=== PATIENT | female | born 1960 | race Caucasian/White ===

== ENCOUNTER 2016-08-25 10:06 | Inpatient (IN) ==
[2016-08-25] MEDS ORDERED: ALBUTEROL 2.5 MG/3 ML NEB RESP TX PRN (13:23)
[2016-08-25] MEDS ORDERED: MORPHINE 2 MG/1 ML SYRINGE IV PRN (13:27)
[2016-08-25] MEDS ORDERED: DOCUSATE SODIUM 100 MG CAPSULE PO PRN (13:27)
[2016-08-25] MEDS ORDERED: ONDANSETRON 4 MG/2 ML VIAL IV PRN (13:27)
[2016-08-25] MEDS ORDERED: ACETAMINOPHEN 325 MG TABLET PO PRN ×2 (13:27)
[2016-08-25] MEDS ORDERED: PROMETHAZINE 25 MG TABLET PO PRN (13:27)
[2016-08-25] MEDS ORDERED: guaiFENesin/DM ER 600-30 MG TABLET PO PRN (13:27)
[2016-08-25] MEDS ORDERED: cefTRIAXone 1,000 MG in SODIUM CHLORIDE 0.9% 100 ML IV SCH (13:30)
--- NOTE | 2016-08-25 13:31 | Hospitalist History & Physical ---
<Svetlana Karimi - Last Filed: 08/25/16 13:23> Assessment and Plan - Time spent with patient Time spent with patient: Greater than 30 minutes (1) COPD exacerbation Status: Acute Assessment and plan: Ms. Gabriel is a 56-year-old white female with history of prior substance abuse , former smoker, and COPD admitted by hospitalist service as a transfer from [facility] emergency room with COPD exacerbation, pneumonia, and a possible lung mass. 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 Petty and he has been consulted. Because of the question of a lung mass we will go ahead and order a CT of the chest with contrast to rule this out. Patient has been started on breathing treatments, supplemental oxygen, antibiotics, and steroids. Patient is also complaining of some headaches and hot flashes with hypertension. Right now her blood pressure is stable but we will continue to monitor this. Her headaches and hot flashes may be due to patient starting to go through menopause. We will continue to monitor this as well. Patient will be seen and examined by and further recommendations to follow. Current Visit: Yes (2) Shortness of breath Status: Acute Current Visit: Yes (3) History of substance abuse Status: Acute Current Visit: Yes (4) History of smoking Status: Acute Current Visit: Yes (5) Mass of lung Status: Acute Current Visit: Yes (6) Headache Status: Acute Current Visit: Yes (7) Hypertension Status: Acute Current Visit: Yes (8) Pneumonia Status: Acute Current Visit: Yes History of Present Illness Chief complaint: Shortness of breath History of present illness: Ms. Gabriel is a 56 year old female with history of previous substance abuse, history of smoking, COPD transferred by Dr. Hernandez from [facility] emergency room with COPD exacerbation, pneumonia, and a questionable lung mass. Patient states she was in her normal state of health until about a week ago when she started coughing and having episodes of shortness of breath. She states she then started running fevers up to 102. She tried to get in to see her coating supervisor Dr. Petty but she could not get an appointment so she went to the [facility] clinic where they gave her steroids and some breathing treatments. She felt a little better for a little while and then she got to where she could not catch her breath at all so she went to the ER at [place] this morning. Her records from [place] show an elevated white count of 17, x-ray report is read as bilateral pneumonia with a questionable lung mass. The remainder of her labs are relatively normal. Patient states when she was in [place] 10 years ago she was told she had something growing in her lung. She is requiring Venturi mask on 12 L to maintain 97% O2 sats. She is also complaining that her blood pressures have been up and she has been having headaches and hot flashes. Her blood pressure on admission is 118/83 she is afebrile. Upon exam, patient states she is feeling a lot better than she did this morning. She does have a mild expiratory wheeze bilaterally, conversational dyspnea, and decreased air movement of the right lung greater than the left. Patient denies chest pain, abdominal pain, constipation or diarrhea, or lower extremity edema. 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) Respiratory: History of: COPD Musculoskeletal: History of: Musculoskeletal Problems (carpel tunnel surgery) No history of: Amputation - Surgical History Thoracic Surgeries: Patient denies;: Lobectomy Abdominal Surgeries: Patient denies: Abdominal Surgery - Family History Family History: Reports;: Family Cancer Denies;: Family Anesthesia Reaction, Family Diabetes, Family Heart Disease, Family Hematology, Family Hypertension, Family Psychiatric Problems, Family Stroke, Additional Family History - Social History Smoking Status: Former smoker Have you smoked in the last 12 months: No Type of Drug Use: None Marital Status: Single Lives With:: Parent Functional capacity: independent ambulation Review of systems: A complete 10 system review of systems was obtained and pertinent positives and negatives per HPI Exam - Constitutional Vitals: Period Temp Pulse Resp BP Sys/Haider Pulse Ox Last 24 Hr 98.2 F 64 20 118/83 97 Exam: Constitutional System: Mild distress. No tremulousness. Head: Normocephalic, atraumatic. Ears, Nose and Throat System: No evidence of Otitis or Mastoiditis. No epistaxis or discharge Eyes System: Pupils equal, round, and reactive. Extraocular muscles intact. Neck: Supple, without adenopathy, No jugular venous distention. No thyromegaly, neck mass, or prior surgery apparent. Respiratory System: Chest expiratory wheeze and decreased air movement right greater than left to auscultation. Cardiovascular System: Heart with regular rate and rhythm. 2/6 murmur. GI System: Abdomen soft, nontender. Normo active bowel sounds present. Musculoskeletal System: limbs with no pedal edema. Full distal pulses. Neurological System: No discernable sensory deficit. No aphasia Psychiatric System: Conversation is rational Results - Labs Lab Results: I have reviewed the past 24 hour labs - EKG EKG results: sinus rhythm - Diagnostic Findings Procedure: Chest x-ray: report reviewed by me (Bilateral pneumonia and questionable lung mass) <Gaby Tay - Last Filed: 08/25/16 14:11> History of Present Illness History of present illness: Ms. Gabriel is a 56 year old female who was transferred for evaluation of a lung mass. Plan CT chest IR consult for a biopsy Pulm consult IV steroids, antibiotics, nebs BC, SC UA Nicotine patch Exam - Constitutional Vitals: Period Temp Pulse Resp BP Sys/Haider Pulse Ox Last 24 Hr 98.2 F 64 20 118/83 97
[2016-08-25] MEDS ORDERED: NICOTINE 21 MG/24 HR PATCH TRANSDERM PRN (14:10)
[2016-08-25] MEDS: ENOXAPARIN 40 MG/0.4 ML SYRINGE SUBCUT SCH (14:26)
[2016-08-25] MEDS: BUDESONIDE/FORMOTEROL 160-4.5 INHALER 6 GM INH SCH ×2 (14:26→20:35)
[2016-08-25] MEDS: PANTOPRAZOLE 40 MG TABLET PO SCH (14:26)
[2016-08-25] MEDS: methylPREDNISolone SOD SUC 40 MG/1 ML VIAL IV SCH (14:26)
[2016-08-25] MEDS: SODIUM CHLORIDE 0.9% 1,000 ML IV SCH (14:27)
--- NOTE | 2016-08-25 14:29 | CT Report ---
Exam: CT chest w con Date: 08/25/2016 1:27 PM Comparison: None Indication: Possible lung mass Technique:[Sequential axial scans of the chest were obtained following the injection of 80 cc of Omnipaque 350. Coronal and sagittal 2-D reconstructions were obtained. Total DLP: 131.30] Findings: The heart is normal in size with no pericardial effusion. No evidence of aortic dissection or pulmonary emboli. No chest lymphadenopathy. Degenerative changes are noted. Centrilobular emphysema with honeycombing and diffuse groundglass opacities. Multifocal noncalcified pulmonary opacities are noted. Findings are more pronounced posteriorly in the lower lobes. Associated pleural thickening posteriorly in the right hemithorax with no pleural effusions.Multiple smaller adjacent noncalcified pulmonary opacities in the right upper lobe, left upper lobe/lingula, and left lower lobe which project more centrally in the lungs. Impression: Centrilobular emphysema with honeycombing and probable chronic interstitial fibrosis. Multifocal noncalcified pulmonary opacities which may be related to superimposed pneumonitis. However masses cannot be excluded and short-term follow-up CT chest and/or PET/CT may be helpful for further evaluation. This CT exam was performed using one or more the following dose reduction techniques: Automated exposure control, adjustment of the MA and/or KV according to patient size, or use of iterative reconstruction technique. PROCEDURE INTERPRETED AT [facility] DEPARTMENT OF RADIOLOGY Final Report Signed by: Dr. Marie Yang
[2016-08-25] MEDS: IPRATROPIUM 500 MCG/2.5 ML NEB RESP TX SCH ×2 (14:56→23:56)
[2016-08-25] MEDS: DOXYCYCLINE HYCLATE INJ 100 MG in SODIUM CHLORIDE 0.9% 100 ML IV SCH (16:23)
[2016-08-25] MEDS: ALBUTEROL/IPRATROPIUM 3 ML NEB RESP TX SCH (19:18)
[2016-08-25] MEDS: TEMAZEPAM 15 MG CAPSULE PO SCH (20:35)
[2016-08-26] MEDS: methylPREDNISolone SOD SUC 40 MG/1 ML VIAL IV SCH ×4 (02:16→20:52)
[2016-08-26] MEDS: SODIUM CHLORIDE 0.9% 1,000 ML IV SCH ×2 (02:16→18:21)
[2016-08-26] MEDS: DOXYCYCLINE HYCLATE INJ 100 MG in SODIUM CHLORIDE 0.9% 100 ML IV SCH (02:16)
--- NOTE | 2016-08-26 07:18 | XRay Report ---
XR chest 2V Date: 08/26/2016 4:00 AM History: Shortness of breath Comparison: None Technique: PA and lateral chest Findings: The heart is small and compressed by the over expanded lungs. Evidence of bullous emphysema. Multiple irregular parenchymal densities are noted with findings somewhat more pronounced in the right midlung zone with a 32 mm density and in the right costophrenic angle location. Unremarkable mediastinum with degenerative changes. Impression: Bullous emphysema with evidence of chronic interstitial fibrosis. Multifocal irregular parenchymal densities which appear more pronounced in the right mid lung zone and in the right costophrenic angle location. Although some of the findings may be related to pneumonia, masses cannot be excluded especially the 32 mm finding in the right midlung zone. Follow-up is recommended. PROCEDURE INTERPRETED AT [facility] DEPARTMENT OF RADIOLOGY Final Report Signed by: Dr. Marie Yang
[2016-08-26 07:36] LABS: Basophils % 0.2 % (0.0-0.8); Hematocrit 38.4 VOL% (35.7-47.0); Hemoglobin 12.5 GM/DL (12.0-16.0); Immature Granulocytes % 2.4 %; Lymphocytes # 1.6 10*3/uL (1.4-4.0); Lymphocytes % 12.6 % (21.3-54.2); Mean Corpuscular HGB Conc 32.6 GM/DL (32-36); Mean Corpuscular Hemoglobin 31 PG (27-34); Mean Corpuscular Volume 96.5 FL (87-102); Mean Platelet Volume 9.9 FL (9.6-12.0); Neutrophils # 9.4 10*3/uL (1.4-7.4); Neutrophils % 76.8 % (38.7-73.9); Platelet Count 361 T/CUMM (130-400); Red Blood Count 3.98 MC/CUMM (3.8-5.5); Red Cell Distribution Width 13.9 % (9.3-17.3); White Blood Count 12.3 T/CUMM (4-12)
[2016-08-26] MEDS: IPRATROPIUM 500 MCG/2.5 ML NEB RESP TX SCH (07:56)
[2016-08-26] MEDS: ALBUTEROL/IPRATROPIUM 3 ML NEB RESP TX SCH ×6 (07:56→23:10)
[2016-08-26 08:10] LABS: Calcium 8.7 MG/DL (8.5-10.1); Osmolality,Calculated 280.4 MOS/KG (273-304); Potassium 5.1 MMOL/L (3.5-5.1)
--- NOTE | 2016-08-26 08:41 | Pulmonology Consult Note ---
Assessment and Plan (1) COPD exacerbation Status: Acute Assessment and plan: The patient has severe COPD and is having exacerbation due to bilateral pneumonia. We will continue vigorous respiratory therapy. Current Visit: Yes (2) History of smoking Status: Acute Assessment and plan: She says she is not smoking now. Current Visit: Yes (3) Hypertension Status: Acute Assessment and plan: Her blood pressure is stable Current Visit: Yes (4) Pneumonia Status: Acute Assessment and plan: Patient has bilateral patchy areas consistent with pneumonia. She will be covered with antibiotics. She does not need a needle biopsy at this point as she has high risk for a pneumothorax. She does have very severe lung disease. Current Visit: Yes Qualifiers: Laterality: bilateral History of Present Illness Chief complaint: Shortness of breath History of present illness: Ms. Gabriel is a 56 year old white female that has very severe COPD comes in now with increasing shortness of breath. She says for the past week she has had fever to 102 and coughing yellow sputum. She has developed more shortness of breath and now has bilateral pneumonia. She has been admitted for IV medications. She is still very short of breath but is able to cough up some secretions. She is not having any pleurisy. She does have very severe COPD. She has a former smoker. Home Medications Medication Instructions Recorded Confirmed Type Temazepam [Restoril] 15 mg PO BEDTIME 10/15/14 10/15/14 History Tiotropium [place] [Spiriva] 2 puffs PO DAILY 10/15/14 10/15/14 History Allergies Allergy/AdvReac Type Severity Reaction Status Date / Time No Known Allergies Allergy Unverified 10/15/14 11:34 - Constitutional Constitutional: Present: chills, fatigue, fever(s). Absent: weight loss - EENT Eyes: Absent: loss of vision Ears: Absent: decreased hearing Nose, mouth and throat: Absent: dysphagia, headache(s), sinus pressure - Cardiovascular Cardiovascular: Present: dyspnea. Absent: chest pain at rest, edema, palpitations - Respiratory Respiratory: Present: cough, dyspnea, wheezing, change in phlegm color. Absent : hemoptysis, pain on inspiration - Gastrointestinal Gastrointestinal: Absent: abdominal pain, change in bowel habits, dysphagia, nausea, vomiting - Genitourinary Genitourinary: Absent: difficulty urinating, hematuria, urinary frequency - Musculoskeletal Musculoskeletal: Absent: arthralgias, muscle weakness - Neurological Neurological: Absent: abnormal speech, focal weakness, paresthesias - Psychiatric Psychiatric: Present: anxiety Exam (Pulmonay) H&P - Constitutional Vitals: Period Temp Pulse Resp BP Sys/Haider Pulse Ox Last 24 Hr 97.3 F-98.6 F 62-96 16-20 114-126/75-83 95-99 General appearance: mild distress, under weight - Head Head exam: Present: normal inspection, normocephalic - Eye Eye exam: Absent: scleral icterus Pupils: Present: ROCIO - ENT ENT exam: Present: normal exam - Neck Neck exam: Present: normal inspection. Absent: lymphadenopathy, thyromegaly - Respiratory Respiratory exam: Present: accessory muscle use, decreased breath sounds, prolonged expiratory phase, wheezes - Cardiovascular Cardiovascular exam: Present: regular rate and rhythm. Absent: gallop, systolic murmur - GI/Abdominal GI/Abdominal exam: Present: normal bowel sounds, soft. Absent: distended, organomegaly, tenderness - Extremities Exam Extremities exam: Absent: calf tenderness, edema - Neurological Exam Neurological exam: Present: alert, oriented X3, CN II-XII intact. Absent: motor sensory deficit - Psychiatric Psychiatric exam: Present: anxious - Skin Skin exam: Present: warm, dry Medical,Surgical,& Family Hx - Medical History Psychological: History of: Psychiatric/Substance Abuse Tx (ETOH abuse Took LSD in the past) Respiratory: History of: COPD Musculoskeletal: History of: Musculoskeletal Problems (carpel tunnel surgery) No history of: Amputation - Surgical History Thoracic Surgeries: Patient denies;: Lobectomy Abdominal Surgeries: Patient denies: Abdominal Surgery - Family History Family History: Reports;: Family Cancer Denies;: Family Anesthesia Reaction, Family Diabetes, Family Heart Disease, Family Hematology, Family Hypertension, Family Psychiatric Problems, Family Stroke, Additional Family History - Social History Smoking Status: Former smoker Type of Drug Use: None Results - Labs CBC & BMP: 08/26/16 05:55 08/26/16 05:55 - Diagnostic Findings Procedure: Chest x-ray: image reviewed by me, report reviewed by me (Chest x- ray shows severe COPD changes with bilateral patchy infiltrates.), CT - chest: image reviewed by me, report reviewed by me (CT shows significant emphysematous changes. There are patchy bilateral infiltrates consistent with pneumonia.)
--- NOTE | 2016-08-26 09:14 | Event Note ---
56-year-old female with severe COPD, diffuse interstitial lung disease and patchy areas of opacity in both lung sellers. Clinically, appear she has pneumonia, but we have been asked to biopsy lung to exclude neoplasm. At this point, none of the areas of opacification standout as a particularly significant target for biopsy, and pursuing a biopsy at this time would be premature without more appropriate workup. Recommend follow-up CT scan after acute issues have resolved, realizing that radiographic findings may lag clinical improvement by days or weeks. Should any of these opacities persist at that point, consider PET scan. It is my opinion that these areas represent multifocal pneumonia but, given the severity of interstitial lung disease present, could also represent areas of confluent pulmonary fibrosis. No biopsy at this time.
[2016-08-26] MEDS: PANTOPRAZOLE 40 MG TABLET PO SCH (10:16)
[2016-08-26] MEDS: BUDESONIDE/FORMOTEROL 160-4.5 INHALER 6 GM INH SCH ×2 (10:17→21:55)
--- NOTE | 2016-08-26 12:34 | Hospitalist Progress Note ---
Assessment and Plan (1) COPD exacerbation Status: Acute Assessment and plan: Patient will need aggressive pulmonary toiletry. Continue Solu-Medrol 40 mg IV every 6 hours. Duo nebs will also continue every 6 hours and as needed. Follow clinical improvement Current Visit: Yes (2) History of substance abuse Status: Acute Assessment and plan: Patient stated to me that this a long time ago she was IV drugs. She does have bilateral infiltrates that are positive different locations. Sometimes really see these kind of chest x-ray abnormalities with sounds the right-sided endocarditis. Patient is a febrile. Counseling against drug was offered to the patient. Current Visit: Yes (3) Mass of lung Status: Acute Assessment and plan: Pulmonology consult is on the case. This time does seem to be consensus that patient has pneumonia. There is bilateral patchy infiltrates are concerning. Current Visit: Yes (4) Pneumonia Status: Acute Assessment and plan: Patient has bilateral patchy infiltrates in the lungs. As mentioned above am concerned about possibility of endovascular infection. We will also need to broaden antibiotics on. Respiratory status has not improved is my despite aggressive treatment. Obtain 2 sets of blood cultures before changing the antibiotics. Patient will be put on ceftazidime 1 g IV every 8 hours discontinue ceftriaxone and levofloxacin 750 mg IV daily also add vancomycin 1 g IV every 12 hours. Will order 1 vancomycin pharmacokinetics monitoring through the pharmacy. Current Visit: Yes Qualifiers: Laterality: bilateral Hospitalist: Subjective Interval history: Patient has been seen interviewed and examined and chart has been reviewed. Admitted to the hospital yesterday with respiratory distress acute exacerbation of COPD. Patient has a history of drug use and states that is a long time ago she used IV drugs. Concerned that she does have bilateral patchy infiltrates one wonders about a possible mycotic embolization to the lung however if she is not using IV drugs now right-sided endocarditis cannot be postulated. She is still needing quite a bit of oxygen to maintain saturations. She has had no fevers while here. Aggressive respiratory toiletry and bronchodilators alongside steroids have been used. Exam - Constitutional Vitals: Period Temp Pulse Resp BP Sys/Haider Pulse Ox Last 24 Hr 97.3 F-98.6 F 62-96 16-20 114-134/54-79 95-99 General appearance: normal weight - Head Head exam: Present: normal inspection, normocephalic, atraumatic - Eye Eye exam: Present: EOMI, other (No conjunctival petechia) Pupils: Present: ROCIO - ENT ENT exam: Present: normal exam, normal oropharynx - Neck Neck exam: Present: normal inspection, other (Supple neck no JVD no stridor midline trachea no thyromegaly) - Respiratory Respiratory exam: Present: other (Distant lung sounds with end-expiratory wheezing occasional cough with deep inspiration) - GI/Abdominal GI/Abdominal exam: Present: normal bowel sounds, soft, other (No hepatosplenomegaly) - Extremities Exam Extremities exam: Present: full ROM, other (No leg edema or cyanosis) - Back Exam Back exam: Present: normal inspection - Neurological Exam Neurological exam: Present: alert, oriented X3, CN II-XII intact - Psychiatric Psychiatric exam: Present: normal affect, normal mood - Skin Skin exam: Present: normal color, warm, dry Results - Labs CBC & BMP: 08/26/16 05:55 08/26/16 05:55 Lab Results: I have reviewed the past 24 hour labs
[2016-08-26] MEDS: ENOXAPARIN 40 MG/0.4 ML SYRINGE SUBCUT SCH (14:35)
[2016-08-26] MEDS: LEVOFLOXACIN INJ 750 MG in PREMIX 1 EACH IV SCH (14:36)
[2016-08-26] MEDS: VANCOMYCIN INJ 1,000 MG in SODIUM CHLORIDE 0.9% 250 ML IV SCH (18:21)
[2016-08-26] MEDS: TEMAZEPAM 15 MG CAPSULE PO SCH (20:52)
[2016-08-27] MEDS: ALBUTEROL/IPRATROPIUM 3 ML NEB RESP TX SCH ×5 (03:20→19:10)
[2016-08-27] MEDS: VANCOMYCIN INJ 1,000 MG in SODIUM CHLORIDE 0.9% 250 ML IV SCH ×2 (04:25→17:42)
[2016-08-27] MEDS: methylPREDNISolone SOD SUC 40 MG/1 ML VIAL IV SCH ×4 (04:25→20:14)
--- NOTE | 2016-08-27 09:52 | Pulmonology Progress Note ---
Pulmonary - PN: Subj Interval history: This is a 56-year-old white female with severe COPD and superimposed pneumonia. There are some nodular appearing infiltrates that will need to be followed until they clear radiographically. She feels a little better today. Continuing antibiotics bronchodilator steroids. Her oxygen saturation looked reasonable on 40% Ventimask but the patient felt more short of breath. She is not a retainer so we will do okay with 50% from now. Exam (Progress Note) - Constitutional Vitals: Period Temp Pulse Resp BP Sys/Haider Pulse Ox Last 24 Hr 97.8 F-98.7 F 70-107 16-24 124-143/54-84 95-100 Exam: Patient is thin. She is alert. Wearing facemask oxygen. Vital signs normal. O2 sat 98%. Pupils react to light. Neck is supple no bruits. Chest reveals coarse rhonchi bilaterally and some expiratory wheezes. Heart normal rate rhythm no murmurs no rubs no gallops. Abdomen soft nontender no masses. Bowel sounds present. Extremities no clubbing cyanosis edema. Calves nontender. Results - Labs CBC & BMP: 08/26/16 05:55 08/26/16 05:55 Lab Results: I have reviewed the past 24 hour labs - Diagnostic Findings Procedure: Chest x-ray: image reviewed by me (Bilateral patchy infiltrates. Hyperinflation.) Assessment and Plan (1) COPD exacerbation Status: Acute Assessment and plan: She is a little better less bronchospasm. Continuing steroids antibiotics. Bronchodilators. Current Visit: Yes (2) Pneumonia Status: Acute Assessment and plan: Multiple patchy areas bilaterally. Certainly one of these could be a bronchogenic carcinoma rather than pneumonia. This bears following up with x- rays and probably a CT in 3 months or so. Current Visit: Yes Qualifiers: Laterality: bilateral
[2016-08-27] MEDS: SODIUM CHLORIDE 0.9% 1,000 ML IV SCH ×2 (10:13→20:14)
[2016-08-27] MEDS: PANTOPRAZOLE 40 MG TABLET PO SCH (10:14)
[2016-08-27] MEDS: BUDESONIDE/FORMOTEROL 160-4.5 INHALER 6 GM INH SCH ×2 (10:15→21:13)
[2016-08-27] MEDS ORDERED: methylPREDNISolone SOD SUC 125 MG/2 ML VIAL IV ONE (13:46)
[2016-08-27] MEDS ORDERED: ALPRAZolam 0.5 MG TABLET PO ONE (13:49)
--- NOTE | 2016-08-27 13:56 | Hospitalist Progress Note ---
Assessment and Plan (1) COPD exacerbation Status: Acute Assessment and plan: Patient will need aggressive pulmonary toiletry. Continue Solu-Medrol 40 mg IV every 6 hours. Duo nebs will also continue every 6 hours and as needed. Follow clinical improvement. With the current event patient given an extra dose of Solu-Medrol 250 mg IV, and DuoNeb 1 unit dose now and obtain a 12-lead EKG. This and is very anxious she will be given Xanax 0.5 mg p.o. once Current Visit: Yes (2) History of substance abuse Status: Acute Assessment and plan: Patient stated to me that this a long time ago she was IV drugs. She does have bilateral infiltrates that are positive different locations. Sometimes really see these kind of chest x-ray abnormalities with sounds the right-sided endocarditis. Patient is a febrile. Counseling against drug was offered to the patient. Current Visit: Yes (3) Mass of lung Status: Acute Assessment and plan: Pulmonology consult is on the case. This time does seem to be consensus that patient has pneumonia. There is bilateral patchy infiltrates are concerning. Current Visit: Yes (4) Pneumonia Status: Acute Assessment and plan: Patient has bilateral patchy infiltrates in the lungs. As mentioned above am concerned about possibility of endovascular infection. We will also need to broaden antibiotics on. Respiratory status has not improved is my despite aggressive treatment. Obtain 2 sets of blood cultures before changing the antibiotics. Patient will be put on ceftazidime 1 g IV every 8 hours discontinue ceftriaxone and levofloxacin 750 mg IV daily also add vancomycin 1 g IV every 12 hours. Will order 1 vancomycin pharmacokinetics monitoring through the pharmacy. Current Visit: Yes Qualifiers: Laterality: bilateral Hospitalist: Subjective Interval history: Patient seen interviewed and examined and chart has been reviewed. It was seen in area on today was doing very well still did have some wheezing bilaterally with distant lung sounds. In the last moment I got called back to the room that she was in a panic state breathing at about 25 breaths a minute is not moving too much area. Her last respiratory treatment was about 4 hours ago. Patient will get another DuoNeb now and will give her 250 mg of Solu-Medrol. She was given some Xanax 0.5 mg 1. She takes temazepam at bedtime. History of events like this is pressure when she can nod culture breath. What instigated this at this time I do not know but she is doing a whole lot worse than when she was in the morning. She is being observed closely here will do another 12-lead EKG d-dimer. Exam - Constitutional Vitals: Period Temp Pulse Resp BP Sys/Haider Pulse Ox Last 24 Hr 98.1 F-98.7 F 70-107 16-24 124-143/69-84 95-100 General appearance: normal weight - Head Head exam: Present: normocephalic, atraumatic - Eye Eye exam: Present: EOMI Pupils: Present: ROCIO - ENT ENT exam: Present: normal exam - Neck Neck exam: Present: normal inspection - Respiratory Respiratory exam: Present: other (Near 25 breaths a minute cannot move air very well she is using intercostal muscle no cyanosis oximetry is optimal distant lung sounds) - Cardiovascular Cardiovascular exam: Present: tachycardia (Sinus control) - GI/Abdominal GI/Abdominal exam: Present: normal bowel sounds, soft - Extremities Exam Extremities exam: Present: normal inspection, full ROM - Back Exam Back exam: Present: normal inspection - Neurological Exam Neurological exam: Present: alert, oriented X3, CN II-XII intact - Psychiatric Psychiatric exam: Present: other (Very anxious with respiratory difficulty) - Skin Skin exam: Present: normal color, warm, dry Results - Labs CBC & BMP: 08/26/16 05:55 08/26/16 05:55 Lab Results: I have reviewed the past 24 hour labs
--- NOTE | 2016-08-27 13:58 | EKG Report ---
Stationary ECG Study [facility] Test Date: 08/27/2016 1:57:53 PM Pat Name: CHRISTINA WELLINGTON Department: Room: 518 Gender: F Hospital Education Coordinator: : 1960 Requested by: Cole Schaeffer Order Number: [id number] Reading MD: CAITLIN TREVIÑO Intervals [place] Rate: 114 P: 88 VA: 146 QRS: -57 QRSD: 78 T: 74 QT: 280 QTc: 348 Interpretive Statements SINUS TACHYCARDIA MARKED LEFT AXIS DEVIATION POSSIBLE RIGHT VENTRICULAR CONDUCTION DELAY Electronically Signed On 08-27-16 16:36:16 CDT by CAITLIN TREVIÑO [email or web address]
[2016-08-27 14:17] LABS: Basophils % 0.3 % (0.0-0.8); Hematocrit 42.4 VOL% (35.7-47.0); Hemoglobin 13.7 GM/DL (12.0-16.0); Immature Granulocytes % 10.9 %; Immature Granulocytes Absolute 1.33 #; Lymphocytes # 1.1 10*3/uL (1.4-4.0); Lymphocytes % 9.1 % (21.3-54.2); Mean Corpuscular HGB Conc 32.3 GM/DL (32-36); Mean Corpuscular Hemoglobin 31 PG (27-34); Mean Platelet Volume 9.5 FL (9.6-12.0); Monocytes # 1.3 10*3/uL (0.11-0.8); Neutrophils # 8.4 10*3/uL (1.4-7.4); Neutrophils % 68.7 % (38.7-73.9); Platelet Count 454 T/CUMM (130-400); Red Blood Count 4.37 MC/CUMM (3.8-5.5); Red Cell Distribution Width 13.8 % (9.3-17.3); White Blood Count 12.2 T/CUMM (4-12)
[2016-08-27 14:31] LABS: Calcium 9.2 MG/DL (8.5-10.1); Magnesium 1.7 MG/DL (1.8-2.4); Osmolality,Calculated 283.3 MOS/KG (273-304); Potassium 3.9 MMOL/L (3.5-5.1)
[2016-08-27 14:35] LABS: ABG Base Excess 5.7 MMOL/L (-2.5-2.5); ABG HCO3 33.4 MMOL/L (20-26); ABG Oxygen Saturation 95.3 % (95-100); ABG PCO2 62.4 MM HG (35-48); ABG PH 7.346 (7.35-7.45); ABG PO2 84.6 MM HG (80-95); ABG TCO2 35.3 MMOL/L (23-27); Allen Test Positive; Pt O2 Delivery Device Venturi Mask
[2016-08-27] MEDS ORDERED: MAGNESIUM SULF RIDER 2 GM in PREMIX 1 EACH IV PRN (14:47)
[2016-08-27] MEDS ORDERED: MAGNESIUM SULF RIDER 4 GM in PREMIX 1 EACH IV PRN (14:47)
[2016-08-27] MEDS: ENOXAPARIN 40 MG/0.4 ML SYRINGE SUBCUT SCH (14:59)
[2016-08-27] MEDS: LEVOFLOXACIN INJ 750 MG in PREMIX 1 EACH IV SCH (16:04)
[2016-08-27 17:34] LABS: HIV Antigen/Antibody Result Nonreactive (Nonreactive)
[2016-08-27 17:41] LABS: Lymphocytes 18 % (20-55); Segmented Neutrophils 78 % (50-85); Total Cells Counted 100
[2016-08-27] MEDS: TEMAZEPAM 15 MG CAPSULE PO SCH (20:15)
[2016-08-28] MEDS: ALBUTEROL/IPRATROPIUM 3 ML NEB RESP TX SCH ×6 (01:25→19:52)
[2016-08-28] MEDS: methylPREDNISolone SOD SUC 40 MG/1 ML VIAL IV SCH ×4 (02:24→20:52)
[2016-08-28] MEDS: VANCOMYCIN INJ 1,000 MG in SODIUM CHLORIDE 0.9% 250 ML IV SCH ×2 (02:28→18:20)
[2016-08-28 05:39] LABS: Basophils % 0.1 % (0.0-0.8); Hematocrit 35.7 VOL% (35.7-47.0); Hemoglobin 11.7 GM/DL (12.0-16.0); Immature Granulocytes % 6.3 %; Immature Granulocytes Absolute 0.67 #; Lymphocytes # 1.3 10*3/uL (1.4-4.0); Mean Corpuscular HGB Conc 32.8 GM/DL (32-36); Mean Corpuscular Hemoglobin 32 PG (27-34); Mean Corpuscular Volume 96.7 FL (87-102); Mean Platelet Volume 9.3 FL (9.6-12.0); Monocytes # 0.7 10*3/uL (0.11-0.8); Monocytes % 6.7 % (1.7-12.7); Neutrophils % 74.9 % (38.7-73.9); Platelet Count 373 T/CUMM (130-400); Red Blood Count 3.69 MC/CUMM (3.8-5.5); Red Cell Distribution Width 13.7 % (9.3-17.3); White Blood Count 10.7 T/CUMM (4-12)
[2016-08-28 05:59] LABS: Calcium 8.6 MG/DL (8.5-10.1); Magnesium 1.8 MG/DL (1.8-2.4); Osmolality,Calculated 281.4 MOS/KG (273-304); Potassium 4.2 MMOL/L (3.5-5.1)
[2016-08-28 06:24] LABS: Hypochromasia 1+; Lymphocytes 18 % (20-55); Segmented Neutrophils 74 % (50-85); Total Cells Counted 100
--- NOTE | 2016-08-28 06:50 | Pulmonology Progress Note ---
Pulmonary - PN: Subj Interval history: This is a 56-year-old white female with severe COPD and superimposed pneumonia. There are some nodular appearing infiltrates that will need to be followed until they clear radiographically. She feels a little better today. Continuing antibiotics bronchodilator steroids. Her oxygen saturation looked reasonable on 40% Ventimask but the patient felt more short of breath. She is not a retainer so we will do okay with 50% from now. 08/28/2016 patient was moved to the ICU last night. Based on her description of events it sounds like she had a panic attack. She said the room was too hot and people were checking on her closely enough. She feels like she is breathing much better just being in the ICU. She did have an elevated PCO2 of 60. We need to reduce her oxygen try to keep her O2 sat in the 90-94% range. Exam (Progress Note) - Constitutional Vitals: Period Temp Pulse Resp BP Sys/Haider Pulse Ox Last 24 Hr 97.7 F-99.4 F 63-122 15-26 112-156/68-100 92-100 Exam: Patient is thin. She is alert. Wearing nasal oxygen. Vital signs normal. O2 sat 100%. Pupils react to light. Neck is supple no bruits. Chest reveals coarse rhonchi bilaterally and some expiratory wheezes. Heart normal rate rhythm no murmurs no rubs no gallops. Abdomen soft nontender no masses. Bowel sounds present. Extremities no clubbing cyanosis edema. Calves nontender. Results - Labs CBC & BMP: 08/28/16 05:34 08/28/16 05:34 Lab Results: I have reviewed the past 24 hour labs - Diagnostic Findings Procedure: Chest x-ray: image reviewed by me (Hyperinflation. Patchy infiltrates. Looks a little better than previous.) Assessment and Plan (1) COPD exacerbation Status: Acute Assessment and plan: She is a little better less bronchospasm. Continuing steroids antibiotics. Bronchodilators. 08/28/2016 lungs do sound better. Should be able to go to the floor if she does not become too anxious. Current Visit: Yes (2) Pneumonia Status: Acute Assessment and plan: Multiple patchy areas bilaterally. Certainly one of these could be a bronchogenic carcinoma rather than pneumonia. This bears following up with x- rays and probably a CT in 3 months or so. 08/28/2016 appears to be improving with antibiotics Current Visit: Yes Qualifiers: Laterality: bilateral (3) Panic attack Status: Acute Assessment and plan: I do think that she had a panic attack. Will start on Paxil today. Current Visit: Yes
[2016-08-28] MEDS: PARoxetine 20 MG TABLET PO SCH (08:25)
[2016-08-28] MEDS: PANTOPRAZOLE 40 MG TABLET PO SCH (08:26)
[2016-08-28 08:47] LABS: Hepatitis A Ab IgM Quant 0.08 Index; Hepatitis A Ab IgM Result Negative (Negative); Hepatitis B Core IgM Quant 0.18 Index; Hepatitis B Core IgM Result Negative (Negative); Hepatitis B Surface Ag Quant 0.23 Index; Hepatitis B Surface Ag Result Negative (Negative); Hepatitis C Virus Ab Quant 0.11 Index; Hepatitis C Virus Ab Result Negative (Negative)
--- NOTE | 2016-08-28 08:53 | XRay Report ---
XR chest 1V portable Indication: Shortness of breath. Comparison: Chest x-ray 08/26/2016. Technique: Portable AP chest was performed. Findings: Heart size appears within normal limits. Mediastinal contour and hilar structures demonstrate no significant abnormalities. Coarsened reticular interstitial markings noted bilaterally have somewhat improved since comparison study and previously demonstrated patchy airspace opacities in the mid to lower right and left chest have improved. Bones and soft tissues appear stable. Impression: 1. Improvement in patchy airspace disease is demonstrated with residual prominent reticular interstitial markings that may in part be chronic. 08/28/2016 8:49 AM PROCEDURE INTERPRETED AT [facility] DEPARTMENT OF RADIOLOGY Final Report Signed by: Dr. Raúl Rahman
--- NOTE | 2016-08-28 10:30 | Hospitalist Progress Note ---
Assessment and Plan (1) COPD exacerbation Status: Acute Assessment and plan: Steroids, duonebs Current Visit: Yes (2) History of substance abuse Status: Acute Current Visit: Yes (3) Mass of lung Status: Acute Assessment and plan: Will need repeat imaging once infection is resolved Current Visit: Yes (4) Pneumonia Status: Acute Assessment and plan: Bilateral pneumonia Pulmonary assisting On ceftazidime and vancomycin Current Visit: Yes Qualifiers: Laterality: bilateral (5) Anxiety Status: Acute Assessment and plan: Panic attack yesterday relieved with xanex Started paxel, xanex prn Current Visit: Yes Hospitalist: Subjective Interval history: No acute events overnight. Yesterday evening patient was transferred to the ICU due to an episode of difficulty breathing. This episode appears to be related to a panic attack. She received a benzo before transfer and was much more comfortable on arrival. She was started on paxil this morning. Pulmonary assisting with management. Will transfer back to the floor today. Exam - Constitutional Vitals: Period Temp Pulse Resp BP Sys/Haider Pulse Ox Last 24 Hr 97.7 F-99.4 F 63-122 15-32 112-156/68-100 92-100 General appearance: normal weight - Head Head exam: Present: normocephalic, atraumatic - Eye Eye exam: Present: EOMI Pupils: Present: ROCIO - ENT ENT exam: Present: normal exam - Neck Neck exam: Present: normal inspection - Respiratory Respiratory exam: Present: rhonchi, wheezes - Cardiovascular Cardiovascular exam: Present: regular rate and rhythm - GI/Abdominal GI/Abdominal exam: Present: normal bowel sounds, soft. Absent: tenderness, rebound - Extremities Exam Extremities exam: Present: normal inspection - Back Exam Back exam: Present: normal inspection - Neurological Exam Neurological exam: Present: alert, oriented X3 - Psychiatric Psychiatric exam: Present: normal affect, normal mood - Skin Skin exam: Present: warm, intact Results - Labs CBC & BMP: 08/28/16 05:34 08/28/16 05:34
[2016-08-28] MEDS: BUDESONIDE/FORMOTEROL 160-4.5 INHALER 6 GM INH SCH ×2 (11:49→20:55)
[2016-08-28] MEDS: ALPRAZolam 0.5 MG TABLET PO PRN ×2 (11:55→20:52)
[2016-08-28] MEDS: ENOXAPARIN 40 MG/0.4 ML SYRINGE SUBCUT SCH (14:26)
[2016-08-28] MEDS: LEVOFLOXACIN INJ 750 MG in PREMIX 1 EACH IV SCH (15:23)
[2016-08-28] MEDS ORDERED: ALPRAZolam 0.5 MG TABLET PO PRN (16:25)
[2016-08-28] MEDS: TEMAZEPAM 15 MG CAPSULE PO SCH (20:52)
[2016-08-28] MEDS: SODIUM CHLORIDE 0.9% 1,000 ML IV SCH ×2 (22:43→22:46)
[2016-08-29] MEDS: ALBUTEROL/IPRATROPIUM 3 ML NEB RESP TX SCH ×7 (00:51→22:44)
[2016-08-29] MEDS: methylPREDNISolone SOD SUC 40 MG/1 ML VIAL IV SCH ×4 (03:23→20:48)
[2016-08-29] MEDS: VANCOMYCIN INJ 1,000 MG in SODIUM CHLORIDE 0.9% 250 ML IV SCH ×2 (03:25→14:53)
[2016-08-29] MEDS: PARoxetine 20 MG TABLET PO SCH (09:20)
[2016-08-29] MEDS: PANTOPRAZOLE 40 MG TABLET PO SCH (09:20)
[2016-08-29] MEDS: ALPRAZolam 0.5 MG TABLET PO PRN ×2 (09:20→20:48)
[2016-08-29] MEDS: BUDESONIDE/FORMOTEROL 160-4.5 INHALER 6 GM INH SCH ×2 (09:34→20:49)
--- NOTE | 2016-08-29 09:41 | Hospitalist Progress Note ---
<Roverto Wilks - Last Filed: 08/29/16 10:04> Assessment and Plan (1) COPD exacerbation Status: Acute Assessment and plan: Pt. on steroids and duonebs. Continue to monitor. Current Visit: Yes (2) Pneumonia Status: Acute Assessment and plan: Pulmonary following. Continue on IV antibiotics. Current Visit: Yes Qualifiers: Laterality: bilateral (3) History of substance abuse Status: Acute Current Visit: Yes (4) Mass of lung Status: Acute Assessment and plan: Repeat CXR. Pulmonary following. Current Visit: Yes (5) Anxiety Status: Acute Assessment and plan: Pt. on prn xanax. Also started on paxil. Current Visit: Yes Hospitalist: Subjective Interval history: Pt. seen and examined. Pt. states she just got a breathing treatment but it didn 't help. Pt. visibly anxious and agitated. Pt. encouraged to be calm and breath deeply. Pt. requests medication for "nerves". RN at bedside and notes request. Pt. denies any other complaints at this time. VS and labs stable this am. Will continue to monitor. Exam - Constitutional Vitals: Period Temp Pulse Resp BP Sys/Haider Pulse Ox Last 24 Hr 97.3 F-98.6 F 55-95 13-88 134-170/70-109 90-98 General appearance: no acute distress - Head Head exam: Present: normal inspection, normocephalic - Eye Eye exam: Present: EOMI. Absent: periorbital swelling Pupils: Present: ROCIO. Absent: dilated - Respiratory Respiratory exam: Present: wheezes - Cardiovascular Cardiovascular exam: Present: regular rate and rhythm - GI/Abdominal GI/Abdominal exam: Present: normal bowel sounds, soft. Absent: tenderness - Extremities Exam Extremities exam: Present: normal capillary refill, full ROM. Absent: edema - Neurological Exam Neurological exam: Present: alert, oriented X3, normal gait - Psychiatric Psychiatric exam: Present: agitated, anxious - Skin Skin exam: Present: normal color, warm, dry Results - Labs CBC & BMP: 08/28/16 05:34 08/28/16 05:34 Lab Results: I have reviewed the past 24 hour labs <Lyric Broussard - Last Filed: 08/29/16 15:59> Assessment and Plan (1) COPD exacerbation Status: Acute Current Visit: Yes (2) History of substance abuse Status: Acute Current Visit: Yes (3) Mass of lung Status: Acute Current Visit: Yes (4) Pneumonia Status: Acute Current Visit: Yes Qualifiers: Laterality: bilateral (5) Anxiety Status: Acute Current Visit: Yes Hospitalist: Subjective Interval history: Patient seen and examined independently of COMMUNICATION ANALYST Wilks, agree with assessment and plan as documented. Exam - Constitutional Vitals: Period Temp Pulse Resp BP Sys/Haider Pulse Ox Last 24 Hr 97.3 F-99.2 F 55-123 16-88 134-160/70-94 87-98 Results - Labs CBC & BMP: 08/28/16 05:34 08/28/16 05:34
[2016-08-29] MEDS: SODIUM CHLORIDE 0.9% 1,000 ML IV SCH (10:20)
--- NOTE | 2016-08-29 12:18 | Pulmonology Progress Note ---
Pulmonary - PN: Subj Interval history: The patient is a 56-year-old that has very severe COPD. She came in with shortness of breath and had patchy bilateral infiltrates. She has been getting antibiotics and steroids and bronchodilator therapy. Over the weekend she said she had panic attacks and was very short of breath and was actually moved to the ICU. She is now on telemetry and does feel better. She still has a good bit of anxiety. Her cough is better and she is clearing a little bit more secretions. Her x-ray actually looked a good bit better. She does seem to be breathing a little more comfortably. Exam (Progress Note) - Constitutional Vitals: Period Temp Pulse Resp BP Sys/Haider Pulse Ox Last 24 Hr 97.3 F-98.5 F 55-95 16-88 134-170/70-94 90-98 Exam: General appearance: mild distress, under weight, she is still a little anxious but looks comfortable. - Head Head exam: Present: normal inspection, normocephalic - Eye Eye exam: Absent: scleral icterus Pupils: Present: ROCIO - ENT ENT exam: Present: normal exam - Neck Neck exam: Present: normal inspection. Absent: lymphadenopathy, thyromegaly - Respiratory Respiratory exam: Present: She has very diminished breath sounds with prolonged expiration but her wheezing has improved. She has minimal rhonchi. - Cardiovascular Cardiovascular exam: Present: regular rate and rhythm. Absent: gallop, systolic murmur - GI/Abdominal GI/Abdominal exam: Present: normal bowel sounds, soft. Absent: distended, organomegaly, tenderness - Extremities Exam Extremities exam: Absent: calf tenderness, edema - Neurological Exam Neurological exam: Present: alert, oriented X3, CN II-XII intact. Absent: motor sensory deficit - Psychiatric Psychiatric exam: Present: anxious - Skin Skin exam: Present: warm, dry Results - Labs CBC & BMP: 08/28/16 05:34 08/28/16 05:34 - Diagnostic Findings Procedure: Chest x-ray: image reviewed by me, report reviewed by me (Chest x- ray yesterday showed improvement in the bibasilar infiltrates.) Assessment and Plan (1) COPD exacerbation Status: Acute Assessment and plan: The patient has severe COPD and is having exacerbation due to bilateral pneumonia. She is having some anxiety but does seem to be breathing a little better. Current Visit: Yes (2) History of smoking Status: Acute Assessment and plan: She says she is not smoking now. Current Visit: Yes (3) Hypertension Status: Acute Assessment and plan: Her blood pressure is stable Current Visit: Yes (4) Pneumonia Status: Acute Assessment and plan: Patient has bilateral patchy areas consistent with pneumonia. She will be covered with antibiotics. Her x-ray is improving. She may need a therapeutic bronchoscopy however to clear the thick secretions. Current Visit: Yes Qualifiers: Laterality: bilateral
[2016-08-29] MEDS: LEVOFLOXACIN INJ 750 MG in PREMIX 1 EACH IV SCH (13:36)
[2016-08-29] MEDS: ENOXAPARIN 40 MG/0.4 ML SYRINGE SUBCUT SCH (13:37)
[2016-08-29] MEDS: TEMAZEPAM 15 MG CAPSULE PO SCH (20:48)
[2016-08-30] MEDS: VANCOMYCIN INJ 1,000 MG in SODIUM CHLORIDE 0.9% 250 ML IV SCH (02:34)
[2016-08-30] MEDS: methylPREDNISolone SOD SUC 40 MG/1 ML VIAL IV SCH ×4 (02:57→21:19)
[2016-08-30] MEDS: ALBUTEROL/IPRATROPIUM 3 ML NEB RESP TX SCH ×5 (03:00→20:06)
[2016-08-30 06:14] LABS: Basophils % 0.3 % (0.0-0.8); Hematocrit 43.3 VOL% (35.7-47.0); Hemoglobin 14.5 GM/DL (12.0-16.0); Immature Granulocytes Absolute 0.59 #; Lymphocytes # 1.2 10*3/uL (1.4-4.0); Lymphocytes % 9.9 % (21.3-54.2); Mean Corpuscular HGB Conc 33.5 GM/DL (32-36); Mean Corpuscular Hemoglobin 31 PG (27-34); Mean Corpuscular Volume 92.7 FL (87-102); Mean Platelet Volume 9.3 FL (9.6-12.0); Monocytes # 0.8 10*3/uL (0.11-0.8); Monocytes % 6.6 % (1.7-12.7); Neutrophils # 9.2 10*3/uL (1.4-7.4); Neutrophils % 78.2 % (38.7-73.9); Platelet Count 478 T/CUMM (130-400); Red Blood Count 4.67 MC/CUMM (3.8-5.5); Red Cell Distribution Width 13.3 % (9.3-17.3); White Blood Count 11.8 T/CUMM (4-12)
[2016-08-30 06:53] LABS: Calcium 9.2 MG/DL (8.5-10.1); Magnesium 1.9 MG/DL (1.8-2.4); Osmolality,Calculated 275.7 MOS/KG (273-304); Potassium 4.1 MMOL/L (3.5-5.1)
[2016-08-30 07:16] LABS: Hypochromasia 1+; Lymphocytes 11 % (20-55); Segmented Neutrophils 85 % (50-85); Total Cells Counted 100
[2016-08-30 07:17] LABS: Platelet Estimate Increased
[2016-08-30] MEDS: ENOXAPARIN 40 MG/0.4 ML SYRINGE SUBCUT SCH (09:00)
[2016-08-30] MEDS: PANTOPRAZOLE 40 MG TABLET PO SCH (09:00)
[2016-08-30] MEDS: PARoxetine 20 MG TABLET PO SCH (09:00)
[2016-08-30] MEDS: BUDESONIDE/FORMOTEROL 160-4.5 INHALER 6 GM INH SCH ×2 (09:01→21:20)
--- NOTE | 2016-08-30 09:34 | Pulmonology Progress Note ---
Pulmonary - PN: Subj Interval history: The patient is a 56-year-old that has very severe COPD. She came in with shortness of breath and had patchy bilateral infiltrates. She has been getting antibiotics and steroids and bronchodilator therapy. Over the weekend she said she had panic attacks and was very short of breath and was actually moved to the ICU. She is now on telemetry and does feel better. She still has a good bit of anxiety. She says today she is feeling a little better and seems to be breathing a little better. She still is having trouble clearing secretions. She still has some cough and thick sputum. She does look a little more comfortable however. Exam (Progress Note) - Constitutional Vitals: Period Temp Pulse Resp BP Sys/Haider Pulse Ox Last 24 Hr 97.1 F-99.2 F 80-123 18-22 136-158/82-94 87-98 Exam: General appearance: mild distress, under weight, she is more comfortable and less anxious. - Head Head exam: Present: normal inspection, normocephalic - Eye Eye exam: Absent: scleral icterus Pupils: Present: ROCIO - ENT ENT exam: Present: normal exam - Neck Neck exam: Present: normal inspection. Absent: lymphadenopathy, thyromegaly - Respiratory Respiratory exam: Present: She has very diminished breath sounds with prolonged expiration but her wheezing has improved. She has minimal rhonchi. - Cardiovascular Cardiovascular exam: Present: regular rate and rhythm. Absent: gallop, systolic murmur - GI/Abdominal GI/Abdominal exam: Present: normal bowel sounds, soft. Absent: distended, organomegaly, tenderness - Extremities Exam Extremities exam: Absent: calf tenderness, edema - Neurological Exam Neurological exam: Present: alert, oriented X3, CN II-XII intact. Absent: motor sensory deficit - Psychiatric Psychiatric exam: Present: anxious - Skin Skin exam: Present: warm, dry Results - Labs CBC & BMP: 08/30/16 05:56 08/30/16 05:56 Assessment and Plan (1) COPD exacerbation Status: Acute Assessment and plan: The patient has severe COPD and is having exacerbation due to bilateral pneumonia. She is having some anxiety but does seem to be breathing a little better. She is moving air a little better but still has thick secretions. Will try therapeutic bronchoscopy tomorrow and see if this will help her. Current Visit: Yes (2) History of smoking Status: Acute Assessment and plan: She says she is not smoking now. Current Visit: Yes (3) Hypertension Status: Acute Assessment and plan: Her blood pressure is stable Current Visit: Yes (4) Pneumonia Status: Acute Assessment and plan: Patient has bilateral patchy areas consistent with pneumonia. She will be covered with antibiotics. Her x-ray is improving. She still has trouble with secretions and will plan a therapeutic bronchoscopy tomorrow. Current Visit: Yes Qualifiers: Laterality: bilateral
--- NOTE | 2016-08-30 14:28 | Hospitalist Progress Note ---
Assessment and Plan - Time spent with patient Time spent with patient: Greater than 30 minutes (1) COPD exacerbation Status: Acute Assessment and plan: Continue current management. Pulmonary is on board. Current Visit: Yes (2) Pneumonia Status: Acute Assessment and plan: Continue current management. Current Visit: Yes Qualifiers: Laterality: bilateral Hospitalist: Subjective Interval history: No new complaints or overnight events. Exam - Constitutional Vitals: Period Temp Pulse Resp BP Sys/Haider Pulse Ox Last 24 Hr 97.1 F-98.8 F 80-120 18-22 136-182/82-109 92-98 General appearance: no acute distress - Head Head exam: Present: normocephalic, atraumatic - Eye Eye exam: Present: EOMI Pupils: Present: ROCIO - ENT ENT exam: Present: normal exam - Neck Neck exam: Present: normal inspection - Respiratory Respiratory exam: Present: prolonged expiratory phase, wheezes. Absent: rhonchi - Cardiovascular Cardiovascular exam: Present: regular rate and rhythm. Absent: gallop, rubs, systolic murmur - GI/Abdominal GI/Abdominal exam: Present: normal bowel sounds, soft. Absent: distended, firm , guarding, tenderness, rebound - Extremities Exam Extremities exam: Present: normal inspection. Absent: calf tenderness, edema Results - Labs CBC & BMP: 08/30/16 05:56 08/30/16 05:56 Lab Results: I have reviewed the past 24 hour labs
[2016-08-30] MEDS: LEVOFLOXACIN INJ 750 MG in PREMIX 1 EACH IV SCH (14:47)
[2016-08-30] MEDS: ALPRAZolam 0.5 MG TABLET PO PRN ×2 (14:48→21:20)
[2016-08-30 18:56] LABS: Mycoplasma pneumoniae Ab, IgG 1.25 index (<=0.90); Mycoplasma pneumoniae Ab, IgM 0.47 index (<=0.90)
[2016-08-30] MEDS: TEMAZEPAM 15 MG CAPSULE PO SCH (21:20)
[2016-08-31] MEDS: ALBUTEROL/IPRATROPIUM 3 ML NEB RESP TX SCH ×7 (00:46→20:10)
[2016-08-31] MEDS: methylPREDNISolone SOD SUC 40 MG/1 ML VIAL IV SCH ×3 (02:31→18:11)
[2016-08-31 05:58] LABS: Basophils % 0.2 % (0.0-0.8); Hematocrit 43.7 VOL% (35.7-47.0); Hemoglobin 14.6 GM/DL (12.0-16.0); Immature Granulocytes % 2.7 %; Lymphocytes # 1.1 10*3/uL (1.4-4.0); Lymphocytes % 9.6 % (21.3-54.2); Mean Corpuscular HGB Conc 33.4 GM/DL (32-36); Mean Corpuscular Hemoglobin 31 PG (27-34); Mean Corpuscular Volume 92.4 FL (87-102); Mean Platelet Volume 9.2 FL (9.6-12.0); Monocytes # 0.4 10*3/uL (0.11-0.8); Monocytes % 3.9 % (1.7-12.7); Neutrophils # 9.4 10*3/uL (1.4-7.4); Neutrophils % 83.6 % (38.7-73.9); Platelet Count 512 T/CUMM (130-400); Red Blood Count 4.73 MC/CUMM (3.8-5.5); Red Cell Distribution Width 13.3 % (9.3-17.3); White Blood Count 11.3 T/CUMM (4-12)
[2016-08-31] MEDS ORDERED: GLYCOPYRROLATE 0.4 MG/2 ML VIAL IM ONE (07:00)
[2016-08-31] MEDS ORDERED: MEPERIDINE 50 MG/1 ML VIAL IM ONE (07:00)
[2016-08-31] MEDS ORDERED: PROMETHAZINE 25 MG/1 ML VIAL IM ONE (07:00)
[2016-08-31] MEDS ORDERED: MIDAZOLAM 2 MG/2 ML VIAL ONE ×2 (07:02→07:45)
[2016-08-31] MEDS ORDERED: LIDOCAINE 1% 20 ML VIAL MISC INJ ONE (07:30)
[2016-08-31] MEDS ORDERED: LIDOCAINE 2% VISCOUS 100 ML BOTTLE SWISH/SPIT ONE (07:30)
[2016-08-31] MEDS ORDERED: MIDAZOLAM 2 MG/2 ML VIAL IV ONE (07:30)
[2016-08-31] MEDS ORDERED: LIDOCAINE 4% TOP SOLN 50 ML BOTTLE RESP TX ONE (07:30)
--- NOTE | 2016-08-31 07:41 | Pulmonology Progress Note ---
Pulmonary - PN: Subj Interval history: The patient is a 56-year-old that has very severe COPD. She came in with shortness of breath and had patchy bilateral infiltrates. She has been getting antibiotics and steroids and bronchodilator therapy. Over the weekend she said she had panic attacks and was very short of breath and was actually moved to the ICU. She is now on telemetry and does feel better. She still has a good bit of anxiety. The patient is doing a little better but she still gets very short of breath easily. She still coughs and has trouble clearing secretions. She has been tolerating her therapy fairly well. We will proceed with a therapeutic bronchoscopy and check her airways. Exam (Progress Note) - Constitutional Vitals: Period Temp Pulse Resp BP Sys/Haider Pulse Ox Last 24 Hr 97.4 F-98.6 F 77-152 16-20 137-182/84-124 89-95 Exam: General appearance: mild distress, under weight, she is more comfortable and less anxious. She gets tachypneic very easily however. - Head Head exam: Present: normal inspection, normocephalic - Eye Eye exam: Absent: scleral icterus Pupils: Present: ROCIO - ENT ENT exam: Present: normal exam - Neck Neck exam: Present: normal inspection. Absent: lymphadenopathy, thyromegaly - Respiratory Respiratory exam: Present: She has very diminished breath sounds with prolonged expiration but her wheezing has improved. She has minimal rhonchi. - Cardiovascular Cardiovascular exam: Present: regular rate and rhythm. Her heart rate goes up at times. Absent: gallop, systolic murmur - GI/Abdominal GI/Abdominal exam: Present: normal bowel sounds, soft. Absent: distended, organomegaly, tenderness - Extremities Exam Extremities exam: Absent: calf tenderness, edema - Neurological Exam Neurological exam: Present: alert, oriented X3, CN II-XII intact. Absent: motor sensory deficit - Psychiatric Psychiatric exam: Present: anxious - Skin Skin exam: Present: warm, dry Results - Labs CBC & BMP: 08/31/16 05:42 08/30/16 05:56 Assessment and Plan (1) COPD exacerbation Status: Acute Assessment and plan: The patient has severe COPD and is having exacerbation due to bilateral pneumonia. She is having some anxiety but does seem to be breathing a little better. She is moving air a little better but still has thick secretions. She does have very little reversible disease. We will check her airways with the bronchoscope and clear the secretions. Otherwise will have to continue bronchodilators and steroids. Current Visit: Yes (2) History of smoking Status: Acute Assessment and plan: She says she is not smoking now. Current Visit: Yes (3) Hypertension Status: Acute Assessment and plan: Her blood pressure is stable. It does get very high at times. Current Visit: Yes (4) Pneumonia Status: Acute Assessment and plan: Patient has bilateral patchy areas consistent with pneumonia. She will be covered with antibiotics. Her chest x-ray is much better and the infiltrates are clearing. Current Visit: Yes Qualifiers: Laterality: bilateral
--- NOTE | 2016-08-31 07:45 | Operative Note ---
Date of procedure: 08/31/16 Pre-op diagnosis: COPD with pneumonia Post-op diagnosis: other (Bronchitis with mucous plugging) Procedure: The patient has severe COPD and came in with an exacerbation with bilateral infiltrates. She has had trouble clearing secretions. A bronchoscopy will be done to assess airways and clear airways. Timeout was performed to identify the patient. The patient is in the bronchoscopy lab. Preop: Demerol 50 mg, Phenergan 25 mg, Robinul 0.1 mg IM. Anesthesia: Versed 4 mg IVP, topical lidocaine. Procedure: The fiberoptic bronchoscope was passed transnasally through the vocal cords into the lungs. The bronchopulmonary segments were identified and specimens were obtained. Findings: The vocal cords close normally and the trachea is unremarkable. The main bronchi are open but there is some bronchitis present. There is some thick mucus and plugs seen bilaterally that were washed and cleared. Washings were sent for culture. There is some mild bleeding in the right middle lobe that cleared quickly. The right upper lobe, right middle lobe, and right lower lobe are all open. The left upper lobe, lingula, and left lower lobe are open. There are no endobronchial lesions seen. Once the thick secretions were clear the procedure was stopped. She did get short of breath but tolerated the procedure fairly well Impression: Severe COPD with mucous plugging and bronchitis . Plan: We will continue antibiotics, steroids, and bronchodilator therapy. Anesthesia: conscious sedation Surgeon / Physician: Junito Petty Estimated blood loss: none Specimens: other (Washings were sent for culture) Condition: stable Disposition: floor Results - Labs CBC & BMP: 08/31/16 05:42 08/30/16 05:56 Discharge Plan - Discharge Medications No Action Tiotropium [place] [Spiriva] 2 puffs PO DAILY Temazepam [Restoril] 15 mg PO BEDTIME - Follow Up or Referral - Forms/Instructions
[2016-08-31] MEDS: PANTOPRAZOLE 40 MG TABLET PO SCH ×2 (09:00→12:13)
[2016-08-31] MEDS: ENOXAPARIN 40 MG/0.4 ML SYRINGE SUBCUT SCH ×2 (09:00→12:13)
[2016-08-31] MEDS: PARoxetine 20 MG TABLET PO SCH ×2 (09:00→12:13)
[2016-08-31] MEDS: BUDESONIDE/FORMOTEROL 160-4.5 INHALER 6 GM INH SCH ×2 (09:00→21:47)
[2016-08-31] MEDS: ALPRAZolam 0.5 MG TABLET PO PRN ×2 (12:22→18:11)
[2016-08-31] MEDS: LEVOFLOXACIN INJ 750 MG in PREMIX 1 EACH IV SCH (13:32)
--- NOTE | 2016-08-31 14:50 | Hospitalist Progress Note ---
Assessment and Plan - Time spent with patient Time spent with patient: Greater than 30 minutes (1) COPD exacerbation Status: Acute Assessment and plan: Continue current management. Pulmonary is on board. Status post bronchoscopy with clearance of mucus. Patient is feeling better. Current Visit: Yes (2) Pneumonia Status: Acute Assessment and plan: Continue current management. Current Visit: Yes Qualifiers: Laterality: bilateral Hospitalist: Subjective Interval history: Status post bronchoscopy this morning with clearance of mucous plugs. Patient states she is feeling a little better. Exam - Constitutional Vitals: Period Temp Pulse Resp BP Sys/Haider Pulse Ox Last 24 Hr 97.9 F-98.6 F 77-152 16-25 126-178/84-124 85-97 General appearance: no acute distress, under weight - Head Head exam: Present: normal inspection, normocephalic, atraumatic - Eye Eye exam: Present: EOMI Pupils: Present: ROCIO - ENT ENT exam: Present: normal exam - Neck Neck exam: Present: normal inspection - Respiratory Respiratory exam: Present: wheezes. Absent: rhonchi - Cardiovascular Cardiovascular exam: Present: regular rate and rhythm. Absent: gallop, rubs, systolic murmur - GI/Abdominal GI/Abdominal exam: Present: normal bowel sounds, soft. Absent: distended, firm , guarding, tenderness, rebound - Extremities Exam Extremities exam: Present: normal inspection. Absent: calf tenderness, edema Results - Labs CBC & BMP: 08/31/16 05:42 08/30/16 05:56 Lab Results: I have reviewed the past 24 hour labs
[2016-08-31] MEDS: TEMAZEPAM 15 MG CAPSULE PO SCH (21:35)
[2016-09-01] MEDS: ALBUTEROL/IPRATROPIUM 3 ML NEB RESP TX SCH ×7 (00:51→23:05)
[2016-09-01] MEDS: methylPREDNISolone SOD SUC 40 MG/1 ML VIAL IV SCH ×2 (03:50→11:56)
[2016-09-01 06:34] LABS: Calcium 8.6 MG/DL (8.5-10.1); Osmolality,Calculated 274.8 MOS/KG (273-304)
[2016-09-01 06:47] LABS: Basophils % 0.1 % (0.0-0.8); Hematocrit 41.2 VOL% (35.7-47.0); Hemoglobin 13.7 GM/DL (12.0-16.0); Immature Granulocytes % 2.5 %; Lymphocytes # 1.5 10*3/uL (1.4-4.0); Lymphocytes % 12.3 % (21.3-54.2); Mean Corpuscular HGB Conc 33.3 GM/DL (32-36); Mean Corpuscular Hemoglobin 31 PG (27-34); Mean Corpuscular Volume 92.8 FL (87-102); Mean Platelet Volume 9.5 FL (9.6-12.0); Monocytes # 1.1 10*3/uL (0.11-0.8); Neutrophils # 9.2 10*3/uL (1.4-7.4); Neutrophils % 76.1 % (38.7-73.9); Platelet Count 454 T/CUMM (130-400); Red Blood Count 4.44 MC/CUMM (3.8-5.5); Red Cell Distribution Width 13.4 % (9.3-17.3)
[2016-09-01] MEDS: BUDESONIDE/FORMOTEROL 160-4.5 INHALER 6 GM INH SCH ×2 (09:00→21:54)
[2016-09-01] MEDS: ALPRAZolam 0.5 MG TABLET PO PRN ×2 (10:18→17:02)
[2016-09-01] MEDS: PARoxetine 20 MG TABLET PO SCH (10:18)
[2016-09-01] MEDS: PANTOPRAZOLE 40 MG TABLET PO SCH (10:18)
[2016-09-01] MEDS: ENOXAPARIN 40 MG/0.4 ML SYRINGE SUBCUT SCH (10:18)
[2016-09-01] MEDS: diphenhydrAMINE CAP 25 MG CAPSULE PO PRN ×2 (10:20→21:59)
--- NOTE | 2016-09-01 12:55 | Pulmonology Progress Note ---
Pulmonary - PN: Subj Interval history: The patient is a 56-year-old that has very severe COPD. She came in with shortness of breath and had patchy bilateral infiltrates. She has been getting antibiotics and steroids and bronchodilator therapy. Over the weekend she said she had panic attacks and was very short of breath and was actually moved to the ICU. She is now on telemetry and does feel better. She still has a good bit of anxiety. Yesterday we did a therapeutic bronchoscopy and she did fairly well. She feels like she is breathing better today and not having as much congestion. Overall she feels like she is more comfortable. Exam (Progress Note) - Constitutional Vitals: Period Temp Pulse Resp BP Sys/Haider Pulse Ox Last 24 Hr 97.4 F-99.0 F 77-110 17-20 121-140/70-89 92-98 Exam: General appearance: no distress, under weight, she is more comfortable and less anxious. She looks like she is breathing easier today. - Head Head exam: Present: normal inspection, normocephalic - Eye Eye exam: Absent: scleral icterus Pupils: Present: ROCIO - ENT ENT exam: Present: normal exam - Neck Neck exam: Present: normal inspection. Absent: lymphadenopathy, thyromegaly - Respiratory Respiratory exam: Present: She has diminished breath sounds but she is not wheezing very much now. She does look like she is breathing easier. - Cardiovascular Cardiovascular exam: Present: regular rate and rhythm. Her heart rate goes up at times. Absent: gallop, systolic murmur - GI/Abdominal GI/Abdominal exam: Present: normal bowel sounds, soft. Absent: distended, organomegaly, tenderness - Extremities Exam Extremities exam: Absent: calf tenderness, edema - Neurological Exam Neurological exam: Present: alert, oriented X3, CN II-XII intact. Absent: motor sensory deficit - Psychiatric Psychiatric exam: Present: She looks much calmer - Skin Skin exam: Present: warm, dry Results - Labs CBC & BMP: 09/01/16 04:00 09/01/16 04:00 Assessment and Plan (1) COPD exacerbation Status: Acute Assessment and plan: The patient has severe COPD and is having exacerbation due to bilateral pneumonia. She did have pneumococcus growing out on culture. She is doing much better today. Current Visit: Yes (2) History of smoking Status: Acute Assessment and plan: She says she is not smoking now. Current Visit: Yes (3) Hypertension Status: Acute Assessment and plan: Her blood pressure is stable. It is doing better now. Current Visit: Yes (4) Pneumonia Status: Acute Assessment and plan: Patient has bilateral patchy areas consistent with pneumonia. She did have pneumococcal pneumonia growing out. She is doing better with antibiotics. Her chest x-ray is much better. She is much improved now. Current Visit: Yes Qualifiers: Laterality: bilateral
[2016-09-01] MEDS: predniSONE 20 MG TABLET PO SCH (13:58)
--- NOTE | 2016-09-01 14:44 | Hospitalist Progress Note ---
Assessment and Plan - Time spent with patient Time spent with patient: Greater than 30 minutes (1) COPD exacerbation Status: Acute Assessment and plan: Continue current management. Pulmonary is on board. Status post bronchoscopy with clearance of mucus. Patient is feeling better. Current Visit: Yes (2) Pneumonia Status: Acute Assessment and plan: Continue current management. Current Visit: Yes Qualifiers: Laterality: bilateral Hospitalist: Subjective Interval history: No complaints or overnight events. Exam - Constitutional Vitals: Period Temp Pulse Resp BP Sys/Haider Pulse Ox Last 24 Hr 97.4 F-98.5 F 77-110 17-20 121-139/70-89 92-98 General appearance: normal weight, no acute distress - Head Head exam: Present: normocephalic, atraumatic - Eye Eye exam: Present: EOMI Pupils: Present: ROCIO - ENT ENT exam: Present: normal exam - Neck Neck exam: Present: normal inspection - Respiratory Respiratory exam: Present: clear to auscultation bilaterally. Absent: rhonchi, wheezes - Cardiovascular Cardiovascular exam: Present: regular rate and rhythm. Absent: gallop, rubs, systolic murmur - GI/Abdominal GI/Abdominal exam: Present: normal bowel sounds, soft. Absent: distended, firm , guarding, tenderness, rebound - Extremities Exam Extremities exam: Present: normal inspection. Absent: calf tenderness, edema Results - Labs CBC & BMP: 09/01/16 04:00 09/01/16 04:00 Lab Results: I have reviewed the past 24 hour labs
[2016-09-01] MEDS: TEMAZEPAM 15 MG CAPSULE PO SCH (21:58)
[2016-09-02] MEDS: ALBUTEROL/IPRATROPIUM 3 ML NEB RESP TX SCH ×3 (04:55→11:30)
[2016-09-02 07:00] LABS: Basophils % 0.1 % (0.0-0.8); Eosinophils % 0.1 % (0.00-10.9); Hematocrit 41.2 VOL% (35.7-47.0); Hemoglobin 13.6 GM/DL (12.0-16.0); Immature Granulocytes Absolute 0.12 #; Lymphocytes # 2.2 10*3/uL (1.4-4.0); Lymphocytes % 17.6 % (21.3-54.2); Mean Corpuscular Hemoglobin 31 PG (27-34); Mean Corpuscular Volume 94.1 FL (87-102); Mean Platelet Volume 9.6 FL (9.6-12.0); Monocytes # 1.2 10*3/uL (0.11-0.8); Monocytes % 9.6 % (1.7-12.7); Neutrophils # 8.9 10*3/uL (1.4-7.4); Neutrophils % 71.6 % (38.7-73.9); Platelet Count 398 T/CUMM (130-400); Red Blood Count 4.38 MC/CUMM (3.8-5.5); Red Cell Distribution Width 13.7 % (9.3-17.3); White Blood Count 12.4 T/CUMM (4-12)
[2016-09-02 07:38] LABS: Calcium 8.3 MG/DL (8.5-10.1); Osmolality,Calculated 277.5 MOS/KG (273-304); Potassium 4.1 MMOL/L (3.5-5.1)
[2016-09-02] MEDS: predniSONE 20 MG TABLET PO SCH (08:40)
[2016-09-02] MEDS: PANTOPRAZOLE 40 MG TABLET PO SCH (08:40)
[2016-09-02] MEDS: BUDESONIDE/FORMOTEROL 160-4.5 INHALER 6 GM INH SCH (08:40)
[2016-09-02] MEDS: ENOXAPARIN 40 MG/0.4 ML SYRINGE SUBCUT SCH (08:40)
[2016-09-02] MEDS: PARoxetine 20 MG TABLET PO SCH (08:40)
[2016-09-02] MEDS ORDERED: LEVOFLOXACIN 500 MG TABLET PO SCH (09:00)
--- NOTE | 2016-09-02 11:59 | Pulmonology Progress Note ---
Pulmonary - PN: Subj Interval history: The patient is a 56-year-old that has very severe COPD. She had patchy infiltrates with pneumococcal pneumonia. This is all cleared up and her breathing is much better. She looks comfortable and back to baseline. Exam (Progress Note) - Constitutional Vitals: Period Temp Pulse Resp BP Sys/Haider Pulse Ox Last 24 Hr 97.2 F-98.2 F 77-115 16-20 121-142/66-88 93-99 Exam: General appearance: no distress, under weight, she is more comfortable and in no distress now. And less anxious. - Head Head exam: Present: normal inspection, normocephalic - Eye Eye exam: Absent: scleral icterus Pupils: Present: ROCIO - ENT ENT exam: Present: normal exam - Neck Neck exam: Present: normal inspection. Absent: lymphadenopathy, thyromegaly - Respiratory Respiratory exam: Present: She has diminished breath sounds but is moving air okay without any wheezing now. - Cardiovascular Cardiovascular exam: Present: regular rate and rhythm. Her heart rate goes up at times. Absent: gallop, systolic murmur - GI/Abdominal GI/Abdominal exam: Present: normal bowel sounds, soft. Absent: distended, organomegaly, tenderness - Extremities Exam Extremities exam: Absent: calf tenderness, edema - Neurological Exam Neurological exam: Present: alert, oriented X3, CN II-XII intact. Absent: motor sensory deficit - Psychiatric Psychiatric exam: Present: She looks much calmer - Skin Skin exam: Present: warm, dry Results - Labs CBC & BMP: 09/02/16 05:43 09/02/16 05:42 Assessment and Plan (1) COPD exacerbation Status: Acute Assessment and plan: The patient has severe COPD and is having exacerbation due to bilateral pneumonia. She did have pneumococcus growing out on culture. She is doing much better today. She looks quite comfortable and her breathing is close to baseline. She can probably go home soon. Current Visit: Yes (2) History of smoking Status: Acute Assessment and plan: She says she is not smoking now. Current Visit: Yes (3) Hypertension Status: Acute Assessment and plan: Her blood pressure is stable. It is doing better now. Current Visit: Yes (4) Pneumonia Status: Acute Assessment and plan: Patient has bilateral patchy areas consistent with pneumonia. She did have pneumococcal pneumonia growing out. She is doing better with antibiotics. Her chest x-ray is much better. She is much improved now. Current Visit: Yes Qualifiers: Laterality: bilateral
--- NOTE | 2016-09-02 12:48 | Discharge Summary ---
Hospital Course - Hospital Course Hospital Course: Ms. Gabriel was admitted for evaluation and management of COPD with exacerbation. She was initiated on IV antibiotics. While in the ED she had a which CT of her chest revealed emphysema, pulmonary opacities concerning for pneumonitis. Underlying masses could not be excluded. Pulmonary was consulted, who agreed with the treatment plan. Sputum returned Streptococcus pneumoniae and her IV antibiotics were narrowed. Pulmonary performed a bronchoscope, and thick secretions that were removed. She improved gradually and by discharge she had met maximum benefit of hospitalization. She will follow up with her [facility] for repeat CT of her chest after resolution of her pneumonia. I spent 38 minutes coordinating this discharge. - Time spent with patient Time with patient DS: Greater than 30 minutes Diagnosis - Discharge Diagnosis (1) COPD exacerbation Status: Acute (2) Pneumonia Status: Acute Discharge Plan - Discharge Data Disposition: Disch To Home/Self Care Condition at Discharge: Stable Discharge Diet: advance to your usual diet Activity: resume usual activities as tolerated - Discharge Medications New predniSONE TAB [PredniSONE] 10 mg PO DAILY #9 tablet Budesonide/Formoterol 160-4.5 [Symbicort 160-4.5] 2 puff INH BID #1 inhaler Levofloxacin Tab [Levaquin Tab] 500 mg PO DAILY #3 tablet Continue Tiotropium Brea [Spiriva] 2 puffs PO DAILY Temazepam [Restoril] 15 mg PO BEDTIME - Follow Up or Referral - Forms/Instructions Exam - Constitutional Vitals: Period Temp Pulse Resp BP Sys/Haider Pulse Ox Last 24 Hr 97.2 F-98.2 F 77-115 16-20 121-135/66-78 93-99 General appearance: no acute distress, under weight - Head Head exam: Present: normal inspection, normocephalic, atraumatic - Eye Eye exam: Present: EOMI Pupils: Present: ROCIO - ENT ENT exam: Present: normal exam - Neck Neck exam: Present: normal inspection - Respiratory Respiratory exam: Present: clear to auscultation bilaterally, prolonged expiratory phase. Absent: accessory muscle use, wheezes - Cardiovascular Cardiovascular exam: Present: regular rate and rhythm. Absent: bradycardia, irregular rhythm, systolic murmur - GI/Abdominal GI/Abdominal exam: Present: normal bowel sounds. Absent: ascites, distended, hypoactive bowel sounds, tenderness - Extremities Exam Extremities exam: Present: normal inspection Discharge Results Procedures and tests throughout hospitalization: Pending Orders 08/31/16 AFB Culture/Smears Routine Fungal Culture w/ Prep Routine Labs on day of discharge: Labs from last 24 hours 09/02/16 09/02/16 05:43 05:42 WBC 12.4 H RBC 4.38 Hgb 13.6 Hct 41.2 MCV 94.1 MCH 31 MCHC 33.0 RDW 13.7 Plt Count 398 MPV 9.6 Neut % (Auto) 71.6 Lymph % (Auto) 17.6 L Tillman % (Auto) 9.6 Eos % (Auto) 0.1 Baso % (Auto) 0.1 Neut # (Auto) 8.9 H Lymph # (Auto) 2.2 Tillman # (Auto) 1.2 H Eos # (Auto) 0.0 Baso # (Auto) 0.0 Immature Gran % 1.0 Nucleated RBC % 0.0 Immature Gran # 0.12 Nucleated RBCs # 0.00 Sodium 139 Potassium 4.1 Chloride 98 Carbon Dioxide 34 H Anion Gap 11.1 BUN 14 Creatinine 0.50 L GFR Calculation 91 BUN/Creatinine Ratio 28.00 H Glucose 93 Calculated Osmolality 277.5 Calcium 8.3 L DS: Provider Date of admission: 08/25/16 11:29 Primary care physician: . No PCP Attending physician on admission: Gaby Tay MD Consults: 08/25/16 13:25 Consult to Physician [CONS] Routine Comment: pt of yours, copd exac,pneum,?lung mass Consulting Provider: Junito Petty When should Consulting Provider be notified: Now Person Notified: AMY Date Notified: 08/25/16 Time Notified: 14:21 08/30/16 08:15 Consult to Pharmacy [CONS] Routine Reason for Pharmacy Consult: Dose/Manage Vancomycin Discharging clinician: Jessica Edgar MD Expected date of discharge: 09/02/16
[2016-09-02 21:40] VITALS: BP 126/70
== END 2016-09-02 15:25 | disposition home or self-care (01) | DRG 190 ==
LOC: SUATTDRO 11:29 → N.5E 11:29 → N.ICU 08-27 14:55 → N.TELEN 08-28 16:21 → N.2E 08-29 16:41
PROVIDERS: ADMIT Internal Medicine; ATTEND Internal Medicine